=== PATIENT | male | born 1940 | race Native Hawaiian/Other Pacific Islander ===

== ENCOUNTER 2020-04-28 14:18 | Inpatient (IN) | payer OTHER ==
[~2020-04-28] VITALS: Ht 177.8 cm; Wt 70.1 kg
[2020-04-28 15:05] VITALS: BP 111/69; TEMP 98; Ht 177.8 cm; Wt 70.1 kg
[2020-04-28 19:47] VITALS: BP 123/60; TEMP 98.8
[2020-04-29 08:00] VITALS: BP 113/62; TEMP 98.1
[2020-04-29 20:00] VITALS: BP 108/55; TEMP 98
[2020-04-30 08:00] VITALS: BP 106/62; TEMP 98.4
[2020-04-30 16:00] VITALS: BP 113/68; TEMP 98.4
[2020-04-30 20:00] VITALS: BP 112/68; TEMP 98.2
[2020-05-01 08:00] VITALS: BP 102/63; TEMP 99.5
[2020-05-01 19:43] VITALS: BP 93/56; TEMP 99
[2020-05-02 08:00] VITALS: BP 101/59; TEMP 97.9
[2020-05-02 15:30] LABS: PLATELET COUNT 194 K/uL (142-355)
[2020-05-02 20:00] VITALS: BP 105/57; TEMP 99
[2020-05-03 08:00] VITALS: BP 86/51; TEMP 98
[2020-05-03 19:56] VITALS: BP 105/61; TEMP 98.5
[2020-05-03 20:06] VITALS: BP 105/61; TEMP 98.5
[2020-05-04 08:00] VITALS: BP 95/60; TEMP 98.6
[2020-05-04 19:11] LABS: PLATELET COUNT 221 K/uL (142-355)
[2020-05-04 20:00] VITALS: BP 98/53; TEMP 99.1
[2020-05-05 05:30] LABS: PLATELET COUNT 220 K/uL (142-355)
[2020-05-05 06:03] LABS: POTASSIUM 5.4 mmol/L (3.6-5.2)
[2020-05-05 08:00] VITALS: BP 120/80; TEMP 97.9
[2020-05-05 13:40] LABS: PLATELET COUNT 249 K/uL (142-355)
[2020-05-08 08:00] VITALS: BP 95/51; TEMP 98.2
[2020-05-08 19:53] VITALS: BP 94/56; TEMP 98
[2020-05-09 08:00] VITALS: BP 110/60; TEMP 98.2
[2020-05-09 20:00] VITALS: BP 105/60; TEMP 98.3
[2020-05-10 08:00] VITALS: BP 101/63; TEMP 98
[2020-05-10 19:35] VITALS: BP 97/63; TEMP 98.3
[2020-05-11 05:28] LABS: PLATELET COUNT 374 K/uL (142-355)
[2020-05-11 05:50] LABS: POTASSIUM 4.2 mmol/L (3.6-5.2)
[2020-05-11 08:00] VITALS: BP 91/59; TEMP 98.6
[2020-05-11 20:00] VITALS: BP 105/64; TEMP 98.4
[2020-05-12 05:48] LABS: POTASSIUM 3.8 mmol/L (3.6-5.2)
[2020-05-12 08:00] VITALS: BP 82/46; TEMP 98.7
[2020-05-12 19:51] VITALS: BP 96/58; TEMP 98.8
[2020-05-13 08:00] VITALS: BP 119/70; TEMP 98.9
[2020-05-13 20:00] VITALS: BP 101/60; TEMP 99.3
[2020-05-14 08:00] VITALS: BP 97/59; TEMP 98.9
[2020-05-14 20:00] VITALS: BP 93/60; TEMP 98.3
[2020-05-15 08:00] VITALS: BP 96/66; TEMP 98.4
[2020-05-15 19:40] VITALS: BP 97/64; TEMP 98.8
[2020-05-16 08:00] VITALS: BP 107/67; TEMP 98.4
[2020-05-16 19:42] VITALS: BP 93/58; TEMP 98.9
[2020-05-17 08:00] VITALS: BP 89/56; TEMP 98.9
[2020-05-17 10:12] LABS: PLATELET COUNT 307 K/uL (142-355)
[2020-05-17 10:20] LABS: POTASSIUM 4.2 mmol/L (3.6-5.2)
[2020-05-17 12:00] VITALS: BP 95/55; TEMP 98.8
[2020-05-17 16:00] VITALS: BP 102/60; TEMP 98.6
[2020-05-17 19:52] VITALS: BP 108/55; TEMP 98.7
[2020-05-18 08:00] VITALS: BP 105/74; TEMP 97.9
[2020-05-18 20:00] VITALS: BP 106/62; TEMP 98.5
[2020-05-19 08:00] VITALS: BP 84/55; TEMP 98.2
[2020-05-19 20:23] VITALS: BP 104/60; TEMP 97.9
[2020-05-20 08:00] VITALS: BP 105/61; TEMP 99.4
[2020-05-20 12:00] VITALS: BP 87/61
[2020-05-20 16:00] VITALS: BP 98/56; TEMP 99.1
[2020-05-20 19:58] VITALS: BP 105/61; TEMP 98.2
[2020-05-21 08:00] VITALS: BP 103/59; TEMP 99.1
[2020-05-21 19:54] VITALS: BP 123/68; TEMP 98.4
[2020-05-22 08:00] VITALS: BP 102/62; TEMP 98.7
[2020-05-22 20:00] VITALS: BP 113/68; TEMP 98.8
[2020-05-23 08:00] VITALS: BP 110/65; TEMP 98.1
[2020-05-23 20:00] VITALS: BP 134/70; TEMP 98.6
[2020-05-24 05:35] LABS: PLATELET COUNT 211 K/uL (142-355)
[2020-05-24 05:36] LABS: POTASSIUM 3.2 mmol/L (3.6-5.2)
[2020-05-24 08:00] VITALS: BP 139/73; TEMP 99.6
[2020-05-24 19:58] VITALS: BP 112/64; TEMP 98.6
[2020-05-25 08:00] VITALS: BP 128/72; TEMP 98.4
[2020-05-25 20:00] VITALS: BP 120/68; TEMP 98.3
[2020-05-26 08:00] VITALS: BP 118/65; TEMP 98.9
[2020-05-26 20:00] VITALS: BP 108/63; TEMP 98.3
[2020-05-27 08:00] VITALS: BP 99/51; TEMP 98.4
[2020-05-27 20:00] VITALS: BP 125/83; TEMP 98.2
[2020-05-28 08:00] VITALS: BP 111/63; TEMP 98.4
[2020-05-28 20:00] VITALS: BP 110/67; TEMP 99
[2020-05-29 08:00] VITALS: BP 117/68; TEMP 98.9
[2020-05-29 19:53] VITALS: BP 111/69; TEMP 98.6
[2020-05-30 08:00] VITALS: BP 122/70; TEMP 98.4
== END 2020-05-30 12:10 | disposition home health service (06) | DRG 640 ==
LOC: MED/SURG 14:18
PROVIDERS: Internal Medicine; ADMIT Internal Medicine Endocrinology, Diabetes & Metabolism; ATTEND Internal Medicine Endocrinology, Diabetes & Metabolism
DX: R62.7 Adult failure to thrive (principal); B45.1 Cerebral cryptococcosis; A43.0 Pulmonary nocardiosis; D62 Acute posthemorrhagic anemia; N17.8 Other acute kidney failure; E11.9 Type 2 diabetes mellitus without complications; I25.10 Atherosclerotic heart disease of native coronary artery without angina pectoris; B36.8 Other specified superficial mycoses; I10 Essential (primary) hypertension; E03.8 Other specified hypothyroidism; E78.49 Other hyperlipidemia; I48.91 Unspecified atrial fibrillation; R31.9 Hematuria, unspecified; N20.0 Calculus of kidney; I25.2 Old myocardial infarction; E87.6 Hypokalemia; R53.1 Weakness; K59.09 Other constipation
CPT/HCPCS: 36415; 80048; 80053; 81000; 82570; 83970; 84100; 84155; 84300; 85027; 86140; 87070; 87081; 87635; 94760; J0696; J1642; J2405; U0003

== ENCOUNTER 2020-06-13 16:36 | Emergency (ER) | payer OTHER ==
[~2020-06-13] VITALS: Ht 177.8 cm; Wt 69.9 kg
[2020-06-13 16:55] VITALS: TEMP 97.6
[2020-06-13 18:22] VITALS: BP 107/67
== END 2020-06-13 18:18 | disposition home or self-care (01) ==
LOC: ED 16:36
DX: S06.300A Unspecified focal traumatic brain injury without loss of consciousness, initial encounter (principal); S01.81XA Laceration without foreign body of other part of head, initial encounter; S00.83XA Contusion of other part of head, initial encounter; W01.198A Fall on same level from slipping, tripping and stumbling with subsequent striking against other object, initial encounter; Y92.89 Other specified places as the place of occurrence of the external cause
CPT/HCPCS: 99282; 99283

== ENCOUNTER 2020-06-25 16:28 | Emergency (ER) | payer OTHER ==
[~2020-06-25] VITALS: Ht 177.8 cm; Wt 69.9 kg
[2020-06-25 16:28] VITALS: TEMP 98
[2020-06-25 18:42] VITALS: BP 130/69
== END 2020-06-25 18:42 | disposition home or self-care (01) ==
LOC: ED 16:29
PROC: 0HQ1XZZ Repair Face Skin, External Approach (ICD-10-PCS; principal; 2020-06-25)
DX: S01.101A Unspecified open wound of right eyelid and periocular area, initial encounter (principal); Z79.01 Long term (current) use of anticoagulants; W22.8XXA Striking against or struck by other objects, initial encounter; Y92.098 Other place in other non-institutional residence as the place of occurrence of the external cause
CPT/HCPCS: 99282

== ENCOUNTER 2020-07-06 13:33 | Emergency (ER) | payer OTHER ==
[~2020-07-06] VITALS: Ht 177.8 cm; Wt 69.9 kg
[2020-07-06 13:55] VITALS: BP 166/66; TEMP 98.7
== END 2020-07-06 13:56 | disposition home or self-care (01) ==
LOC: ED 13:33
DX: Z48.02 Encounter for removal of sutures (principal)

== ENCOUNTER 2020-09-18 14:25 | Emergency (ER) | payer OTHER ==
[~2020-09-18] VITALS: Ht 177.8 cm; Wt 69.9 kg
[2020-09-18 15:01] LABS: PLATELET COUNT 261 K/uL (142-355)
[2020-09-18 15:14] LABS: SODIUM 140 mmol/L (136-145)
[2020-09-18 15:24] LABS: PARTIAL THROMBOPLASTIN TIME 23.9 SECONDS (24.5-33.6)
[2020-09-18 16:10] VITALS: BP 117/72; TEMP 97.6
== END 2020-09-18 16:10 | disposition home or self-care (01) ==
LOC: ED 14:25
PROVIDERS: Family Medicine
DX: I20.8 Other forms of angina pectoris (principal); K29.60 Other gastritis without bleeding; Z03.818 Encounter for observation for suspected exposure to other biological agents ruled out
CPT/HCPCS: 36415; 80053; 82550; 84484; 85027; 85610; 85730; 87635; 93005; 99283; U0003

== ENCOUNTER 2020-12-10 14:57 | Outpatient (CLI) | payer OTHER | END 2020-12-10 23:59 | disposition home or self-care (01) | LOC: RAD 14:57 | PROVIDERS: ATTEND Nurse Practitioner Gerontology | DX: M19.011 Primary osteoarthritis, right shoulder (principal); M75.101 Unspecified rotator cuff tear or rupture of right shoulder, not specified as traumatic; M25.511 Pain in right shoulder ==

== ENCOUNTER 2021-07-07 13:12 | Outpatient (CLI) | payer OTHER ==
[2021-07-07 13:37] LABS: PLATELET COUNT 273 K/uL (142-355)
[2021-07-07 13:41] LABS: POTASSIUM 4.1 mmol/L (3.6-5.2)
== END 2021-07-07 18:57 | disposition home or self-care (01) ==
LOC: LABW 13:12
PROVIDERS: ATTEND Internal Medicine
DX: U07.1 COVID-19 (principal)
CPT/HCPCS: 36415; 80053; 82728; 85027; 85379; 86140

== ENCOUNTER 2023-03-24 09:41 | Outpatient (CLI) | payer OTHER | END 2023-03-24 19:46 | disposition home or self-care (01) | LOC: RAD 09:41 | PROVIDERS: ATTEND Internal Medicine Rheumatology | DX: M85.89 Other specified disorders of bone density and structure, multiple sites (principal) ==